=== PATIENT | female | born 1985 | race African-American/Black ===

== ENCOUNTER 2016-11-26 12:43 | Emergency (ER) | payer SELFPAY ==
[~2016-11-26] VITALS: Ht 162.6 cm; Wt 85.0 kg
[2016-11-26 12:51] VITALS: BP 148/95; PULSE 76; RESP 18; TEMP 97.8; O2SAT 99
[2016-11-26] MEDS ORDERED: PERM5CRE11 TOPICAL (13:14)
--- NOTE | 2016-11-26 13:14 | PD ---
HPI Chief Complaint: Skin Problem Time Seen by Provider: 13:12 Travel History International Travel<30 days: No Contact w/Intl Traveler<30days: No Traveled to known affect area: No History of Present Illness HPI 31-year-old female presents to the emergency Department with complaint of an itchy rash to bilateral upper and lower extremities times one week. She says it is spreading and getting worse. She just let a friend with her 2 children move into her house and they have a rash. She questioned the new roommate about scabies and the new roommate denied. Patient says the rash is worse at night. She has not taken any medications or tried any treatments to leaving her symptoms. She denies new lotions, detergents, soaps, medications, foods, environmental exposures. Denies fever, chills, nausea, vomiting. Denies airway edema, difficulty breathing, shortness of breath. Allergies to Midol, Motrin, shellfish, shrimp. No other modifying factors or associated signs and symptoms. PFSH Past Medical History Anxiety: Yes Diminished Hearing: No ?: Not LMP: 11/09/16 : 3 Para: 1 Miscarriage: 1 : 1 Past Surgical History Section: Yes Gynecologic Surgery: Yes Social History Alcohol Use: No Tobacco Use: No Substance Use: No Allergies-Medications (Allergen,Severity, Reaction): Coded Allergies: Motrin (Verified Allergy, Severe, hives, 11/26/16) Shellfish (Verified Allergy, Severe, Anaphylaxis, 11/26/16) Shrimp (Verified Allergy, Severe, Anaphylaxis, 11/26/16) Uncoded Allergies: MIDOL (Allergy, Severe, HIVES, 04/26/12) Reported Meds & Prescriptions Reported Meds & Active Scripts Active Elimite Topical (Permethrin) 5% Cream 1 Applic TOPICAL ONCE Review of Systems Except as stated in HPI: all other systems reviewed are Neg Physical Exam Narrative GENERAL: Well-nourished, well-developed female patient, in no acute distress; afebrile, nontoxic-appearing SKIN: Warm and dry. Generalized erythremic pimple-like rash to bilateral upper and lower extremities. No rash noted to the abdomen, chest, back, waistline, webs of the fingers or toes. No areas with cellulitic process noted. HEAD: Atraumatic. Normocephalic. EYES: Pupils equal and round. No scleral icterus. No injection or drainage. ENT: Mucosa pink and moist. Airway patent. NECK: Trachea midline. CARDIOVASCULAR: Regular rate and rhythm.. RESPIRATORY: No accessory muscle use. Breath sounds clear and equal bilaterally. No retractions or tachypnea. GASTROINTESTINAL: Rounded. MUSCULOSKELETAL: No obvious deformities. No clubbing. No cyanosis. No edema. NEUROLOGICAL: Awake and alert. Oriented 3. No obvious cranial nerve deficits. Motor grossly within normal limits. Normal speech. PSYCHIATRIC: Appropriate mood and affect; insight and judgment normal. Data Data Last Documented VS Vital Signs Date Time Temp Pulse Resp B/P Pulse Ox O2 Delivery O2 Flow Rate FiO2 11/26/16 12:51 97.8 76 18 148/95 99 Room Air MDM Medical Decision Making Medical Screen Exam Complete: Yes Emergency Medical Condition: Yes Medical Record Reviewed: Yes Differential Diagnosis Scabies, contact dermatitis, nonspecific skin eruption Narrative Course 31-year-old female physical examination consistent with scabies rash. Patient is in no acute distress. Afebrile and nontoxic-appearing. She denies fever, chills, nausea, vomiting. Elimite cream prescribed for home. Instructed patient to follow up with dermatology. Patient verbalizes understanding and agreement with treatment plan. Patient is medically cleared and stable for discharge. Discussed reasons to return to the emergency department. Instructed patient to follow up with primary care provider. Patient agrees with treatment plan. The patients vital signs are stable and the patient is stable for outpatient follow-up and treatment. Patient discharged home, stable and in no acute distress. Diagnosis Primary Impression: Scabies Referrals: Logistics/Shipper Primary Care Physician Patient Instructions: General Instructions, Scabies (ED), Scabies in Children ( ED) Departure Forms: Tests/Procedures, Work Release Enter return to work date: Nov 28, 2016 Additional Instructions: Elimite cream as directed; repeat in one week as needed Soaking in cool water or apply cool, wet washcloths to irritated areas to minimize itching Apply anti-itch creams, such as calamine lotion, to relieve pain and itching as needed Otni-igk-rdaewon antihistamines as needed and as directed to relieve allergic symptoms caused by scabies Wash all pillows, linens, blankets, etc. in hot water and dry in hot dryer Bag and all unwashable linens, [place] stuffed animals, etc. in a tightly sealed garbage bag for up to 2 weeks Follow-up with animal behaviorist Follow-up with primary care provider Return to the emergency department immediately with worsening of symptoms Med/Other Pt SpecificInfo: Prescription(s) given Scripts Permethrin Topical (Elimite Topical)5% Cream1 Applic TOPICAL ONCE #1 TUBE Ref 1 Prov:Regine Cheung 11/26/16 Disposition: 01 DISCHARGE HOME Condition: Stable Regine Cheung Nov 26, 2016 13:14
== END 2016-11-26 13:31 | disposition home or self-care (01) ==
LOC: NEPB 12:43
DX: B86 Scabies (principal); Z86.59 Personal history of other mental and behavioral disorders
CPT/HCPCS: 99282